=== PATIENT | female | born 1965 | race Caucasian/White ===

== ENCOUNTER → 2017-09-06 | Outpatient (CLI) | payer BC ==
[~2017-09-06] MED LIST: IOHEXOL 240 MG/ML 50ML VIAL. ONE
[2017-09-06] MEDS: IOHEXOL 300 MG/ML 75 ML VIAL. IV ONE (10:28)
[2017-09-06] MEDS: IOHEXOL 300 MG/ML 50 ML VIAL. IV ONE (10:28)
--- NOTE | 2017-09-06 11:13 | RAD ---
CT of the chest, abdomen, and pelvis with contrast 09/06/2017 Indication: Cervical cancer Comparison study: Lumbar spine radiographs January 11, 2016 Technique: Multidetector CT imaging of the chest, abdomen, and pelvis was performed following the administration of intravenous and enteric contrast. PQRS Compliance Statement: One or more of the following individualized dose reduction techniques were utilized for this examination: 1. Automated exposure control 2. Adjustment of the mA and/or kV according to patient size 3. Use of iterative reconstruction technique Chest: Heart size is normal. No pericardial effusion is identified. Coronary artery calcification is noted. No pathologically enlarged mediastinal adenopathy is seen. No pneumothorax, pleural effusion, or focal consolidation is identified. No acute osseous changes are seen involving the bony thorax. Abdomen and pelvis: The liver is unremarkable in appearance. Cholelithiasis noted. Spleen is unremarkable. The adrenal glands are unremarkable. The kidneys are unremarkable. Pancreas is unremarkable. There is no evidence of bowel obstruction. No acute inflammatory changes involving the visualized bowel are identified. There is no pneumoperitoneum. No significant free fluid is seen in the abdomen or pelvis. Patient is status post hysterectomy. The bladder is unremarkable. The no acute osseous changes are identified. Degenerative changes of the lumbar spine are noted. Degenerative changes of the lumbar spine are noted. This includes some height loss at L3, L4, L5 with vacuum disc phenomena. Similar findings are seen T11-T12. Associated vertebral body sclerosis is noted. These findings however are unchanged with respect to comparison radiographs from January 16, 2016. Impression: 1.No evidence of acute or cardiopulmonary or intra-abdominal process. No CT evidence of thoracic or abdominal metastatic disease. 2.Cholelithiasis 3. Coronary artery calcification 4. Significant degenerative changes of the thoracic and lumbar spine
== END | disposition home or self-care (01) ==
LOC: CT 08:57
PROVIDERS: ATTEND Obstetrics & Gynecology Gynecologic Oncology
DX: C53.0 Malignant neoplasm of endocervix (principal); N89.5 Stricture and atresia of vagina; K80.20 Calculus of gallbladder without cholecystitis without obstruction; M47.896 Other spondylosis, lumbar region; I10 Essential (primary) hypertension; Z90.710 Acquired absence of both cervix and uterus
CPT/HCPCS: 71260; 74177; Q9966; Q9967

== ENCOUNTER → 2019-07-18 | Outpatient (CLI) | payer MEDICARE ==
[2019-07-18 10:45] LABS: BASO % 1 % (0-3); EOS # 0.2 x10^3/uL (0.0-0.7); EOS % 6 % (0-3); HEMATOCRIT 34.8 % (36.0-47.0); HEMOGLOBIN 11.1 g/dL (12.0-15.5); LYMPH # 1.2 x10^3/uL (1.0-4.8); LYMPH % 29 % (24-48); MEAN CORPUSCULAR HEMOGLOBIN 28 pg (25-35); MEAN CORPUSCULAR HGB CONC 32 g/dL (31-37); MEAN CORPUSCULAR VOLUME 88 fL (79-100); MONO # 0.2 x10^3/uL (0.0-1.1); MONO % 6 % (0-9); NEUT # 2.4 x10^3uL (1.8-7.7); NEUT % 58 % (31-73); PLATELET COUNT 380 x10^3/uL (140-400); RED BLOOD COUNT 3.94 x10^6/uL (3.50-5.40); WHITE BLOOD COUNT 4.1 x10^3/uL (4.0-11.0)
== END | disposition home or self-care (01) ==
LOC: LAB 09:55
PROVIDERS: ATTEND Nurse Practitioner Family
DX: C53.9 Malignant neoplasm of cervix uteri, unspecified (principal)
CPT/HCPCS: 36415; 85025

== ENCOUNTER → 2019-09-30 | Outpatient (CLI) | payer MEDICARE ==
[~2019-09-30] MED LIST changes: +HEPARIN PF 500 UNIT/5 ML DISP.SYRIN. IVP ONE; -IOHEXOL 240 MG/ML 50ML VIAL. ONE
[2019-09-30 09:48] VITALS: BP 124/88
--- NOTE | 2019-09-30 09:49 | NUR ---
NURSING NOTE OUTPATIENT PT WHEELED TO ROOM 105 FOR OUTPATIENT PORT FLUSH AND LAB DRAW. VITALS OBTAINED. LABS DRAWN. PICC FLUSHED WITH 10 CC NS AND HEP FLUSH LOCK. PT EJ WELL. PT WHEELED OFF UNIT. NO COMPLICATIONS. TINY ZAPIEN.
[2019-09-30 11:09] LABS: ALBUMIN 2.9 g/dL (3.4-5.0); ALBUMIN/GLOBULIN RATIO 0.7 (1.0-1.7); CALCIUM 7.7 mg/dL (8.5-10.1); CREATININE 0.9 mg/dL (0.6-1.0); GFR 65.8; POTASSIUM 4.4 mmol/L (3.5-5.1); TOTAL BILIRUBIN 0.1 mg/dL (0.2-1.0); TOTAL PROTEIN 7.3 g/dL (6.4-8.2)
== END | disposition home or self-care (01) ==
LOC: OPINF 09:12
PROVIDERS: ATTEND Nurse Practitioner Family
DX: C53.9 Malignant neoplasm of cervix uteri, unspecified (principal)
CPT/HCPCS: 36415; 36591; 80053; 96523

== ENCOUNTER → 2019-10-21 | Outpatient (CLI) | payer MEDICARE ==
[2019-10-21 09:23] LABS: BASO # 0.1 x10^3/uL (0.0-0.2); BASO % 1 % (0-3); EOS # 0.2 x10^3/uL (0.0-0.7); EOS % 3 % (0-3); HEMATOCRIT 32.5 % (36.0-47.0); HEMOGLOBIN 10.7 g/dL (12.0-15.5); LYMPH % 17 % (24-48); MEAN CORPUSCULAR HEMOGLOBIN 30 pg (25-35); MEAN CORPUSCULAR HGB CONC 33 g/dL (31-37); MEAN CORPUSCULAR VOLUME 90 fL (79-100); MONO # 0.4 x10^3/uL (0.0-1.1); MONO % 6 % (0-9); NEUT # 4.3 x10^3uL (1.8-7.7); NEUT % 73 % (31-73); PLATELET COUNT 356 x10^3/uL (140-400); RED CELL DISTRIBUTION WIDTH 20.6 % (11.5-14.5); WHITE BLOOD COUNT 5.9 x10^3/uL (4.0-11.0)
[2019-10-21 09:26] VITALS: BP 124/67
--- NOTE | 2019-10-21 09:28 | NUR ---
Port accessed using 20g 1 inch. flushed with 10 cc NS then pulled back and wasted. [place] for labs pulled back from port then flushed with 30 cc NS then heparin flush. Pt tolerated well then deaccessed with ease. Vitals taken and paper work signed. Will fax to appropriate place. PT left via WC with friend driving. Moe FRANKS
[2019-10-21 09:40] LABS: ALBUMIN 2.8 g/dL (3.4-5.0); ALBUMIN/GLOBULIN RATIO 0.6 (1.0-1.7); CALCIUM 7.3 mg/dL (8.5-10.1); CREATININE 0.9 mg/dL (0.6-1.0); GFR 65.5; POTASSIUM 3.8 mmol/L (3.5-5.1); TOTAL BILIRUBIN 0.2 mg/dL (0.2-1.0); TOTAL PROTEIN 7.2 g/dL (6.4-8.2)
[2019-10-21 10:11] LABS: PLT ESTIMATE ADEQUATE (ADEQUATE)
[2019-10-21 10:16] LABS: PAPPENHEIMER BODIES PRESENT
[2019-10-21 10:17] LABS: ANISOCYTOSIS PRESENT
== END | disposition home or self-care (01) ==
LOC: OPINF 09:15
PROVIDERS: ATTEND Nurse Practitioner Family
DX: Z45.2 Encounter for adjustment and management of vascular access device (principal); C53.9 Malignant neoplasm of cervix uteri, unspecified
CPT/HCPCS: 36415; 36591; 80053; 85025; 96523

== ENCOUNTER → 2020-02-04 | Outpatient (CLI) | payer MEDICARE ==
[2020-02-04 09:12] VITALS: BP 139/71
--- NOTE | 2020-02-04 09:14 | NUR ---
Port accessed with ease 20g 1 inch. Great blood return noted. Flushed with 60 CC NS then heparin flush 5cc. PT left via WC via private vehicle. Moe FRANKS
== END | disposition home or self-care (01) ==
LOC: OPINF 08:35
PROVIDERS: ATTEND Family Medicine
DX: Z45.2 Encounter for adjustment and management of vascular access device (principal); I10 Essential (primary) hypertension
CPT/HCPCS: 96523

== ENCOUNTER → 2020-03-10 | Outpatient (CLI) | payer MEDICARE ==
[~2020-03-10] MED LIST changes: +ALTEPLASE 2 MG VIAL INT CAT PRN; -HEPARIN PF 500 UNIT/5 ML DISP.SYRIN. IVP ONE
[2020-03-10 09:17] VITALS: BP 110/73
[2020-03-10] MEDS: HEPARIN PF 500 UNIT/5 ML DISP.SYRIN. IVP ONE (09:29)
== END | disposition home or self-care (01) ==
LOC: OPINF 08:55
PROVIDERS: ATTEND Nurse Practitioner Family
DX: Z45.2 Encounter for adjustment and management of vascular access device (principal); I10 Essential (primary) hypertension
CPT/HCPCS: 96523

== ENCOUNTER → 2020-05-25 | Outpatient (CLI) | payer MEDICARE ==
[2020-04-21 09:16] VITALS: BP 128/78
[2020-05-25 13:13] LABS: BACTERIA,URINE MANY /HPF (0-FEW); BILIRUBIN,URINE NEG (NEG); CLARITY,URINE CLOUDY; COLOR,URINE YELLOW; GLUCOSE,URINE NEG (NEG); NITRITE,URINE POS (NEG); SQUAMOUS EPITHELIAL CELL,UR OCC /LPF; UROBILINOGEN,URINE 0.2 mg/dL (0.2 mg/dL); WBC,URINE >40 /HPF (0-4)
== END ==
LOC: LAB 12:33
PROVIDERS: ATTEND Nurse Practitioner Family
DX: R30.0 Dysuria (principal)
CPT/HCPCS: 81001; 87077; 87086; 87186

== ENCOUNTER → 2020-09-16 | Outpatient (CLI) | payer MEDICARE ==
[~2020-09-16] MED LIST changes: -ALTEPLASE 2 MG VIAL INT CAT PRN; +HEPARIN PF 500 UNIT/5 ML DISP.SYRIN. IVP ONE
[2020-09-16 09:48] VITALS: BP 118/80
--- NOTE | 2020-09-16 09:50 | NUR ---
NURSING NOTE OUTPATIENT PT WHEELED TO ROOM 109 FOR PORT FLUSH AND LAB COLLECTION. VITALS OBTAINED. NO COMPLICATIONS. PT WHEELED OFF UNIT. TINY ZAPIEN.
[2020-09-16 10:03] LABS: BASO # 0.1 x10^3/uL (0.0-0.2); BASO % 1 % (0-3); EOS # 0.4 x10^3/uL (0.0-0.7); EOS % 5 % (0-3); HEMATOCRIT 35.2 % (36.0-47.0); HEMOGLOBIN 11.4 g/dL (12.0-15.5); LYMPH # 1.1 x10^3/uL (1.0-4.8); LYMPH % 16 % (24-48); MEAN CORPUSCULAR HEMOGLOBIN 29 pg (25-35); MEAN CORPUSCULAR HGB CONC 33 g/dL (31-37); MEAN CORPUSCULAR VOLUME 88 fL (79-100); MONO # 0.4 x10^3/uL (0.0-1.1); MONO % 6 % (0-9); NEUT # 4.9 x10^3uL (1.8-7.7); NEUT % 72 % (31-73); PLATELET COUNT 303 x10^3/uL (140-400); RED BLOOD COUNT 4.01 x10^6/uL (3.50-5.40); RED CELL DISTRIBUTION WIDTH 16.7 % (11.5-14.5); WHITE BLOOD COUNT 6.8 x10^3/uL (4.0-11.0)
[2020-09-16 10:24] LABS: ALBUMIN 2.8 g/dL (3.4-5.0); ALBUMIN/GLOBULIN RATIO 0.6 (1.0-1.7); CALCIUM 8.3 mg/dL (8.5-10.1); CREATININE 1.2 mg/dL (0.6-1.0); POTASSIUM 3.9 mmol/L (3.5-5.1); TOTAL BILIRUBIN 0.2 mg/dL (0.2-1.0); TOTAL PROTEIN 7.2 g/dL (6.4-8.2)
[2020-09-17 13:43] LABS: FREE T4 0.96 ng/dL (0.76-1.46); THYROID STIM HORMONE (TSH) 14.872 uIU/mL (0.358-3.740)
== END | disposition home or self-care (01) ==
LOC: OPINF 09:09
PROVIDERS: ATTEND Obstetrics & Gynecology
DX: Z45.2 Encounter for adjustment and management of vascular access device (principal); C53.9 Malignant neoplasm of cervix uteri, unspecified; I10 Essential (primary) hypertension; E78.5 Hyperlipidemia, unspecified; R97.1 Elevated cancer antigen 125 [CA 125]
CPT/HCPCS: 36415; 80053; 84436; 84439; 84443; 85025; 96523

== ENCOUNTER → 2020-11-20 | Outpatient (CLI) | payer MEDICARE ==
[~2020-11-20] MED LIST changes: -HEPARIN PF 500 UNIT/5 ML DISP.SYRIN. IVP ONE; +HEPARIN PF 500 UNIT/5 ML DISP.SYRIN. ONE
[2020-11-20 09:00] VITALS: BP 113/78
[2020-11-20 10:05] LABS: BASO # 0.1 x10^3/uL (0.0-0.2); BASO % 1 % (0-3); EOS # 0.4 x10^3/uL (0.0-0.7); EOS % 4 % (0-3); HEMATOCRIT 32.7 % (36.0-47.0); HEMOGLOBIN 10.4 g/dL (12.0-15.5); LYMPH # 1.2 x10^3/uL (1.0-4.8); LYMPH % 13 % (24-48); MEAN CORPUSCULAR HEMOGLOBIN 26 pg (25-35); MEAN CORPUSCULAR HGB CONC 32 g/dL (31-37); MEAN CORPUSCULAR VOLUME 83 fL (79-100); MONO # 0.5 x10^3/uL (0.0-1.1); MONO % 6 % (0-9); NEUT # 7.1 x10^3uL (1.8-7.7); NEUT % 76 % (31-73); PLATELET COUNT 439 x10^3/uL (140-400); RED BLOOD COUNT 3.95 x10^6/uL (3.50-5.40); RED CELL DISTRIBUTION WIDTH 17.5 % (11.5-14.5); WHITE BLOOD COUNT 9.3 x10^3/uL (4.0-11.0)
[2020-11-20 10:15] LABS: ALBUMIN 2.6 g/dL (3.4-5.0); ALBUMIN/GLOBULIN RATIO 0.5 (1.0-1.7); CALCIUM 7.6 mg/dL (8.5-10.1); CREATININE 1.3 mg/dL (0.6-1.0); GFR 42.7; POTASSIUM 3.6 mmol/L (3.5-5.1); TOTAL BILIRUBIN 0.3 mg/dL (0.2-1.0)
[2020-11-20 18:48] LABS: FREE T4 1.25 ng/dL (0.76-1.46); THYROID STIM HORMONE (TSH) 7.711 uIU/mL (0.358-3.740)
== END ==
LOC: OPINF 08:55
PROVIDERS: ATTEND Nurse Practitioner Family
DX: C53.9 Malignant neoplasm of cervix uteri, unspecified (principal); I10 Essential (primary) hypertension; E78.5 Hyperlipidemia, unspecified; E78.2 Mixed hyperlipidemia
CPT/HCPCS: 36415; 36591; 80053; 84439; 84443; 85025; 96523

== ENCOUNTER → 2020-12-11 | Outpatient (CLI) | payer MEDICARE ==
[~2020-12-11] MED LIST changes: +HEPARIN PF 500 UNIT/5 ML DISP.SYRIN. IVP ONE
[2020-12-11 10:09] VITALS: BP 105/57
--- NOTE | 2020-12-11 10:10 | NUR ---
NURSING NOTE PT WHEELED TO ROOM 131 FOR OUTPT PORT ACCESS AND LAB COLLECTION. VITALS OBTAINED. PORT ACCESSED WITH 20G 1 IN GARZA NEEDLE. FLUSHED WITH 20CC NS. LABS COLLECTED. HEP LOCK ADMINISTERED. GARZA NEEDLE REMOVED. PT TOLERATED WELL. PT WHEELED OFF UNIT. TINY ZAPIEN.
[2020-12-11 10:24] LABS: BASO # 0.1 x10^3/uL (0.0-0.2); BASO % 1 % (0-3); EOS # 0.3 x10^3/uL (0.0-0.7); EOS % 3 % (0-3); HEMATOCRIT 28.5 % (36.0-47.0); LYMPH # 1.2 x10^3/uL (1.0-4.8); LYMPH % 12 % (24-48); MEAN CORPUSCULAR HEMOGLOBIN 26 pg (25-35); MEAN CORPUSCULAR HGB CONC 32 g/dL (31-37); MEAN CORPUSCULAR VOLUME 82 fL (79-100); MONO # 0.6 x10^3/uL (0.0-1.1); MONO % 5 % (0-9); NEUT # 8.3 x10^3uL (1.8-7.7); NEUT % 79 % (31-73); PLATELET COUNT 506 x10^3/uL (140-400); RED BLOOD COUNT 3.49 x10^6/uL (3.50-5.40); RED CELL DISTRIBUTION WIDTH 17.9 % (11.5-14.5); WHITE BLOOD COUNT 10.5 x10^3/uL (4.0-11.0)
[2020-12-11 10:34] LABS: ALBUMIN 2.2 g/dL (3.4-5.0); ALBUMIN/GLOBULIN RATIO 0.4 (1.0-1.7); CALCIUM 7.6 mg/dL (8.5-10.1); CREATININE 1.3 mg/dL (0.6-1.0); GFR 42.7; POTASSIUM 3.5 mmol/L (3.5-5.1); TOTAL BILIRUBIN 0.3 mg/dL (0.2-1.0); TOTAL PROTEIN 7.9 g/dL (6.4-8.2)
[2020-12-11 13:53] LABS: FREE T4 1.39 ng/dL (0.76-1.46); THYROID STIM HORMONE (TSH) 7.69 uIU/mL (0.358-3.740)
== END | disposition home or self-care (01) ==
LOC: OPINF 09:21
PROVIDERS: ATTEND Nurse Practitioner Family
DX: Z45.2 Encounter for adjustment and management of vascular access device (principal); C53.0 Malignant neoplasm of endocervix; I10 Essential (primary) hypertension; E78.2 Mixed hyperlipidemia; G62.9 Polyneuropathy, unspecified
CPT/HCPCS: 36415; 80053; 84436; 84439; 84443; 85025; 86304; 96523

== ENCOUNTER → 2021-01-01 | Outpatient (CLI) | payer MEDICARE ==
[2021-01-01 09:38] VITALS: BP 129/76
--- NOTE | 2021-01-01 09:40 | NUR ---
pt presents for lab draw, labs drawn through port per protocol. pt tolerated well.
[2021-01-01 11:06] LABS: BASO # 0.1 x10^3/uL (0.0-0.2); BASO % 1 % (0-3); EOS # 0.4 x10^3/uL (0.0-0.7); EOS % 3 % (0-3); HEMATOCRIT 33.7 % (36.0-47.0); HEMOGLOBIN 10.3 g/dL (12.0-15.5); LYMPH % 18 % (24-48); MEAN CORPUSCULAR HEMOGLOBIN 25 pg (25-35); MEAN CORPUSCULAR HGB CONC 31 g/dL (31-37); MEAN CORPUSCULAR VOLUME 83 fL (79-100); MONO # 0.7 x10^3/uL (0.0-1.1); MONO % 6 % (0-9); NEUT # 8.1 x10^3uL (1.8-7.7); NEUT % 72 % (31-73); PLATELET COUNT 518 x10^3/uL (140-400); RED BLOOD COUNT 4.08 x10^6/uL (3.50-5.40); RED CELL DISTRIBUTION WIDTH 19.9 % (11.5-14.5); WHITE BLOOD COUNT 11.3 x10^3/uL (4.0-11.0)
[2021-01-01 11:14] LABS: ALBUMIN 2.7 g/dL (3.4-5.0); ALBUMIN/GLOBULIN RATIO 0.5 (1.0-1.7); CALCIUM 7.9 mg/dL (8.5-10.1); CREATININE 1.3 mg/dL (0.6-1.0); GFR 42.7; POTASSIUM 3.5 mmol/L (3.5-5.1); TOTAL BILIRUBIN 0.2 mg/dL (0.2-1.0); TOTAL PROTEIN 7.9 g/dL (6.4-8.2)
== END | disposition home or self-care (01) ==
LOC: OPINF 08:46
PROVIDERS: ATTEND Nurse Practitioner Family
DX: C53.0 Malignant neoplasm of endocervix (principal); I10 Essential (primary) hypertension; E78.2 Mixed hyperlipidemia; G62.9 Polyneuropathy, unspecified
CPT/HCPCS: 36415; 80053; 84439; 84443; 85025

== ENCOUNTER → 2021-02-15 | Outpatient (CLI) | payer MEDICARE ==
[2021-02-15 10:00] VITALS: BP 92/49
[2021-02-15 13:03] LABS: BASO # 0.1 x10^3/uL (0.0-0.2); BASO % 1 % (0-3); EOS # 0.2 x10^3/uL (0.0-0.7); EOS % 2 % (0-3); HEMATOCRIT 30.9 % (36.0-47.0); HEMOGLOBIN 9.6 g/dL (12.0-15.5); LYMPH # 1.3 x10^3/uL (1.0-4.8); LYMPH % 13 % (24-48); MEAN CORPUSCULAR HEMOGLOBIN 26 pg (25-35); MEAN CORPUSCULAR HGB CONC 31 g/dL (31-37); MEAN CORPUSCULAR VOLUME 82 fL (79-100); MONO # 0.6 x10^3/uL (0.0-1.1); MONO % 6 % (0-9); NEUT # 8.4 x10^3uL (1.8-7.7); NEUT % 78 % (31-73); PLATELET COUNT 457 x10^3/uL (140-400); RED BLOOD COUNT 3.78 x10^6/uL (3.50-5.40); RED CELL DISTRIBUTION WIDTH 19.5 % (11.5-14.5); WHITE BLOOD COUNT 10.7 x10^3/uL (4.0-11.0)
[2021-02-15 13:11] LABS: ALBUMIN 2.4 g/dL (3.4-5.0); ALBUMIN/GLOBULIN RATIO 0.5 (1.0-1.7); CALCIUM 7.5 mg/dL (8.5-10.1); CREATININE 1.2 mg/dL (0.6-1.0); GFR 46.8; POTASSIUM 3.4 mmol/L (3.5-5.1); TOTAL BILIRUBIN 0.2 mg/dL (0.2-1.0); TOTAL PROTEIN 7.6 g/dL (6.4-8.2)
--- NOTE | 2021-02-15 13:54 | NUR ---
pt here for port flush, port accessed per protocol. port flushed with 20ml NS good blood return noted. blood drawn per order for labs. port flushed with 20ml NS and packed with heparin.
== END | disposition home or self-care (01) ==
LOC: OPINF 09:16
PROVIDERS: ATTEND Family Medicine
DX: Z45.2 Encounter for adjustment and management of vascular access device (principal); C53.0 Malignant neoplasm of endocervix; I10 Essential (primary) hypertension; E78.2 Mixed hyperlipidemia; G62.9 Polyneuropathy, unspecified
CPT/HCPCS: 36415; 36591; 80053; 85025; 86304

== ENCOUNTER → 2021-03-08 | Outpatient (CLI) | payer MEDICARE ==
[2021-03-08 10:30] VITALS: BP 121/57
[2021-03-08 11:09] LABS: BASO % 0 % (0-3); EOS # 0.1 x10^3/uL (0.0-0.7); EOS % 2 % (0-3); HEMOGLOBIN 9.5 g/dL (12.0-15.5); LYMPH % 16 % (24-48); MEAN CORPUSCULAR HEMOGLOBIN 27 pg (25-35); MEAN CORPUSCULAR HGB CONC 32 g/dL (31-37); MEAN CORPUSCULAR VOLUME 84 fL (79-100); MONO # 0.6 x10^3/uL (0.0-1.1); MONO % 9 % (0-9); NEUT # 4.4 x10^3uL (1.8-7.7); NEUT % 72 % (31-73); PLATELET COUNT 263 x10^3/uL (140-400); RED BLOOD COUNT 3.57 x10^6/uL (3.50-5.40); RED CELL DISTRIBUTION WIDTH 21.1 % (11.5-14.5); WHITE BLOOD COUNT 6.1 x10^3/uL (4.0-11.0)
[2021-03-08 11:13] LABS: CALCIUM 6.7 mg/dL (8.5-10.1); CREATININE 1.2 mg/dL (0.6-1.0); GFR 46.8; POTASSIUM 3.4 mmol/L (3.5-5.1)
[2021-03-08 11:19] LABS: ALBUMIN 2.7 g/dL (3.4-5.0); ALBUMIN/GLOBULIN RATIO 0.6 (1.0-1.7); TOTAL BILIRUBIN 0.2 mg/dL (0.2-1.0); TOTAL PROTEIN 7.5 g/dL (6.4-8.2)
[2021-03-08 11:35] LABS: ANISOCYTOSIS MOD; PLT ESTIMATE ADEQUATE (ADEQUATE)
--- NOTE | 2021-03-08 17:57 | NUR ---
Pt here for port flush, port accessed per protocol. port flushed with 20ml NS but could not get any blood return therefore lab had to draw blood per order. Port was packed with heparin. Patient left the unit via wheelchair accompanied by SAMPLE EXAMINER.
== END ==
LOC: OPINF 09:26
PROVIDERS: ATTEND Nurse Practitioner Family
DX: C53.9 Malignant neoplasm of cervix uteri, unspecified (principal); I10 Essential (primary) hypertension; E78.2 Mixed hyperlipidemia; G62.9 Polyneuropathy, unspecified
CPT/HCPCS: 36415; 36591; 80053; 85025

== ENCOUNTER 2021-09-21 12:05 | Emergency (ER) | payer MEDICARE ==
[~2021-09-21] VITALS: Ht 177.8 cm; Wt 164.0 kg
[2021-09-21 12:11] VITALS: BP 141/49
--- NOTE | 2021-09-21 12:43 | PHYS DOC ---
Past History Past Surgical History: Cancer Surgery, Colectomy, Other Additional Past Surgical Histo: Thyroidectomy Alcohol Use: None General Adult EDM: Chief Complaint: BACK PAIN OR INJURY HPI: HPI: Patient is a 55-year-old female coming in via EMS for right lower back pain. Patient says the pain has been going on for about a week. Took her home pain medications without improvement. Patient denies any injuries or falls. Patient has a history of chronic low back pain and used to get injections. Patient is currently getting treatment for metastatic cervical cancer with chemotherapy. Had a PET scan done 2 weeks ago that showed no metastasis to bone Review of Systems: Review of Systems: All other systems within normal limits except for as noted in the HPI Current Medications: Current Meds: Current Medications Medications (Trade) Dose Ordered Sig/Kiki Start Time Stop Time Status Last Admin Dose Admin Hydromorphone HCl (Dilaudid) 1 mg 1X ONCE 09/21/21 12:45 09/21/21 12:46 Ketorolac Tromethamine (Toradol 15mg Vial) 15 mg 1X ONCE 09/21/21 12:45 09/21/21 12:46 Orphenadrine Citrate (Norflex) 60 mg 1X ONCE 09/21/21 12:45 09/21/21 12:46 Allergies: Allergies: Allergies Coded Allergies Type Severity Reaction Last Updated Verified Penicillins Allergy Intermediate Unknown 04/05/21 Yes Sulfa (Sulfonamide Antibiotics) Allergy Intermediate Unknown 04/05/21 Yes Physical Exam: PE: Constitutional: Well developed, well nourished, no acute distress, non-toxic appearance. [] HENT: Normocephalic, atraumatic, bilateral external ears normal, nose normal. [] Eyes: PERRLA, conjunctiva normal, no discharge. [] Neck: No rigidity, supple, no stridor. [] Cardiovascular: Regular rate and rhythm, brisk cap refill [] Lungs & Thorax: Non labored symmetric respirations, no tachypnea or respiratory distress [] Abdomen: Soft, nondistended. Skin: Warm, dry, no erythema, no rash. [] Back: Unremarkable no step-off or deformity, right lower back pain Extremities: No deformities, range of motion grossly intact, no lower extremity edema [] Neurologic: Alert and oriented X 3, no focal deficits noted. [] Psychologic: Affect normal, judgement normal, mood normal. [] Current Patient Data: Vital Signs: Vital Signs Date Time Temp Pulse Resp B/P (MAP) Pulse Ox O2 Delivery O2 Flow Rate FiO2 09/21/21 12:11 97.9 81 16 141/49 (79) 100 Room Air EKG: EKG: [] Radiology/Procedures: Radiology/Procedures: [address] [id number] IMAGING REPORT Signed PATIENT: RASHAWN LO ACCOUNT: [id number] : 1965 LOCATION: ER AGE: 55 SEX: F EXAM STATUS: REG ER ORD. PHYSICIAN: FRANCOIS BANEGAS MD REASON: pain, right PROCEDURE: CT LUMBAR SPINE WO CONTRAST CT LUMBAR SPINE WO History:Reason: pain, right / Spl. Instructions: / History: Technique: Noncontrast CT was performed of the lumbar spine. Multiplanar recon structions were performed. Exposure: One or more of the following individualized dose reduction techniques were utilized for this examination: 1. Automated exposure control 2. Adjustment of the mA and/or kV according to patient size 3. Use of iterative reconstruction technique. Comparison: None Findings: Moderate to severe left hydronephrosis. Left renal atrophy. Moderate to severe right hydronephrosis. Bilateral nephroureteral stents partially imaged. Partial lumbarization of S1. No acute fracture. Advanced degenerative changes most prominent L4-5 and L5-S1. T12-L1: Small disc bulge. No canal or neuroforaminal narrowing. L1-L2: Small disc bulge. No canal or neuroforaminal narrowing. L2-L3: Small broad-based disc bulge. Mild subarticular recess narrowing. No canal narrowing. Mild left neuroforaminal narrowing. Mild facet arthropathy. L3-L4: Posterior disc osteophyte complex. Mild to moderate canal narrowing. Mild bilateral neuroforaminal narrowing. Mild facet arthropathy. L4-L5: Posterior disc osteophyte complex. Degraded evaluation of the central canal. Mild to moderate canal narrowing. Moderate facet arthropathy. Severe right and moderate left neuroforaminal narrowing. L5-S1: Posterior disc osteophyte complex. Degraded evaluation of the central canal. Mild canal narrowing. Subarticular recess narrowing. Moderate facet arthropathy. Severe bilateral neuroforaminal narrowing. Impression: 1. Advanced lumbar spondylosis most prominent L4-5 and L5-S1. 2. Severe neuroforaminal narrowing right L4-L5 and bilateral L5-S1. 3. Moderate to severe bilateral hydronephrosis with bilateral ureteral stents. Electronically signed by: Ezra Martell DO (09/21/2021 1:42 PM) [id number] DICTATED AND SIGNED BY: EZRA MARTELL DO DATE: 09/21/21 [id number] CC: FRANCOIS BANEGAS MD; RAMONITA STINSON ~ [] Heart Score: C/O Chest Pain: No Risk Factors: Risk Factors: DM, Current or recent (<one month) smoker, HTN, HLP, family history of CAD, obesity. Risk Scores: Score 0 - 3: 2.5% MACE over next 6 weeks - Discharge Home Score 4 - 6: 20.3% MACE over next 6 weeks - Admit for Clinical Observation Score 7 - 10: 72.7% MACE over next 6 weeks - Early Invasive Strategies Course & Med Decision Making: Course & Med Decision Making Patient has large right-sided hernia on CT scan. Patient states that this is a known hernia and not complaining of pain in her stomach or distention. Patient's pain controlled and requesting discharge. Dragon Disclaimer: Roberto Disclaimer: This electronic medical record was generated, in whole or in part, using a voice recognition dictation system. Departure Departure: Impression: Primary Impression: Acute exacerbation of chronic low back pain Disposition: HOME / SELF CARE / HOMELESS Condition: STABLE Referrals: RAMONITA STINSON (PCP) Patient Instructions: Back Pain, Adult FRANCOIS BANEGAS MD Sep 21, 2021 12:43
[2021-09-21] MEDS: HYDROmorphone PF 1 MG/ML DISP.SYRIN IVP ONE ×3 (13:08→15:45)
[2021-09-21] MEDS: KETOROLAC 15 MG/ML VIAL. IVP ONE ×2 (13:08→14:17)
[2021-09-21] MEDS: ORPHENADRINE CITRATE 60 MG/2 ML VIAL. IM ONE (13:08)
--- NOTE | 2021-09-21 13:44 | RAD ---
CT LUMBAR SPINE WO History:Reason: pain, right / Spl. Instructions: / History: Technique: Noncontrast CT was performed of the lumbar spine. Multiplanar reconstructions were perform ed. Exposure: One or more of the following individualized dose reduction techniques were utilized for thi s examination: 1. Automated exposure control 2. Adjustment of the mA and/or kV according to patient size 3. Use of iterative reconstruction technique. Comparison: None Findings: Moderate to severe left hydronephrosis. Left renal atrophy. Moderate to severe right hydronephrosis. Bilateral nephroureteral stents partially imaged. Partial lumbarization of S1. No acute fracture. Advanced degenerative changes most prominent L4-5 and L5-S1. T12-L1: Small disc bulge. No canal or neuroforaminal narrowing. L1-L2: Small disc bulge. No canal or neuroforaminal narrowing. L2-L3: Small broad-based disc bulge. Mild subarticular recess narrowing. No canal narrowing. Mild le ft neuroforaminal narrowing. Mild facet arthropathy. L3-L4: Posterior disc osteophyte complex. Mild to moderate canal narrowing. Mild bilateral neurofora livia narrowing. Mild facet arthropathy. L4-L5: Posterior disc osteophyte complex. Degraded evaluation of the central canal. Mild to moderate canal narrowing. Moderate facet arthropathy. Severe right and moderate left neuroforaminal narrowing . L5-S1: Posterior disc osteophyte complex. Degraded evaluation of the central canal. Mild canal narro wing. Subarticular recess narrowing. Moderate facet arthropathy. Severe bilateral neuroforaminal narr owing. Impression: 1. Advanced lumbar spondylosis most prominent L4-5 and L5-S1. 2. Severe neuroforaminal narrowing right L4-L5 and bilateral L5-S1. 3. Moderate to severe bilateral hydronephrosis with bilateral ureteral stents. Electronically signed by: Ezra Martell DO (09/21/2021 1:42 PM) [id number]
== END 2021-09-21 16:12 | disposition home or self-care (01) ==
LOC: ER 12:05
DX: G89.29 Other chronic pain (principal); M54.59 Other low back pain; Z88.0 Allergy status to penicillin; Z88.2 Allergy status to sulfonamides
CPT/HCPCS: 72131; 96372; 96374; 96375; 96376; 99284; J1170; J1885; J2360

== ENCOUNTER → 2021-09-27 | Outpatient (CLI) | payer MEDICARE ==
[~2021-09-27] MED LIST changes: -HEPARIN PF 500 UNIT/5 ML DISP.SYRIN. ONE
--- NOTE | 2021-09-27 09:45 | NUR ---
Patient arrived to the unit unaccompanied via wheelchair to room 103. Patient had orders for labs. Port was not accessed today due to the port being difficult to access for labs more often than not and that the port would be accessed Monday for chemotherapy. Once chemical laboratory technician obtained the labs the patient left the unit via wheelchair escorted by this RN.
[2021-09-27 10:40] VITALS: BP 101/62
[2021-09-27 11:02] LABS: BASO % 1 % (0-3); EOS # 0.1 x10^3/uL (0.0-0.7); EOS % 1 % (0-3); HEMATOCRIT 25.6 % (36.0-47.0); HEMOGLOBIN 8.3 g/dL (12.0-15.5); LYMPH # 0.8 x10^3/uL (1.0-4.8); LYMPH % 14 % (24-48); MEAN CORPUSCULAR HEMOGLOBIN 33 pg (25-35); MEAN CORPUSCULAR HGB CONC 32 g/dL (31-37); MEAN CORPUSCULAR VOLUME 100 fL (79-100); MONO # 0.4 x10^3/uL (0.0-1.1); MONO % 7 % (0-9); NEUT # 4.2 x10^3uL (1.8-7.7); NEUT % 77 % (31-73); PLATELET COUNT 123 x10^3/uL (140-400); RED BLOOD COUNT 2.56 x10^6/uL (3.50-5.40); RED CELL DISTRIBUTION WIDTH 18.5 % (11.5-14.5); WHITE BLOOD COUNT 5.5 x10^3/uL (4.0-11.0)
[2021-09-27 11:07] LABS: CALCIUM 6.2 mg/dL (8.5-10.1); CREATININE 1.5 mg/dL (0.6-1.0); GFR 36.2; POTASSIUM 3.7 mmol/L (3.5-5.1)
[2021-09-27 11:13] LABS: ALBUMIN 2.4 g/dL (3.4-5.0); ALBUMIN/GLOBULIN RATIO 0.5 (1.0-1.7); TOTAL BILIRUBIN 0.2 mg/dL (0.2-1.0)
[2021-09-27 14:04] LABS: CHOLESTEROL/HDL RATIO 4.4
[2021-09-27 14:05] LABS: CREATININE,RANDOM URINE 31.9 mg/dL (Not Establ.)
[2021-09-28 01:25] LABS: HEMOGLOBIN A1C 5.9 % (4.8-5.6)
== END | disposition home or self-care (01) ==
LOC: LAB 10:18
PROVIDERS: ATTEND Clinical Nurse Specialist Oncology
DX: C53.9 Malignant neoplasm of cervix uteri, unspecified (principal); E78.2 Mixed hyperlipidemia; G89.29 Other chronic pain; M54.59 Other low back pain; I10 Essential (primary) hypertension; R73.01 Impaired fasting glucose; C53.0 Malignant neoplasm of endocervix; Z90.710 Acquired absence of both cervix and uterus
CPT/HCPCS: 36415; 80053; 80061; 82570; 83036; 84156; 85025; 86304

== ENCOUNTER → 2021-10-18 | Outpatient (CLI) | payer MEDICARE ==
[2021-10-18 10:30] VITALS: BP 112/68
--- NOTE | 2021-10-18 11:25 | NUR ---
Patient arrived to the unit via wheelchair to room 103. VS WNL. Port accessed, port flushed with 20ml of NS, good blood return noted, labs drawn, port flushed with 20ml NS, port de-accessed. Patient left the unit via wheelchair escorted by this RN. Patient transported home in private vehicle.
[2021-10-18 11:58] LABS: ALBUMIN 2.3 g/dL (3.4-5.0); ALBUMIN/GLOBULIN RATIO 0.5 (1.0-1.7); CALCIUM 6.2 mg/dL (8.5-10.1); CREATININE 1.4 mg/dL (0.6-1.0); POTASSIUM 3.9 mmol/L (3.5-5.1); TOTAL BILIRUBIN 0.2 mg/dL (0.2-1.0); TOTAL PROTEIN 7.1 g/dL (6.4-8.2)
[2021-10-18 11:59] LABS: BASO % 0 % (0-3); EOS % 1 % (0-3); HEMATOCRIT 22.6 % (36.0-47.0); HEMOGLOBIN 7.5 g/dL (12.0-15.5); LYMPH # 0.9 x10^3/uL (1.0-4.8); LYMPH % 13 % (24-48); MEAN CORPUSCULAR HEMOGLOBIN 33 pg (25-35); MEAN CORPUSCULAR HGB CONC 33 g/dL (31-37); MEAN CORPUSCULAR VOLUME 100 fL (79-100); MONO # 0.4 x10^3/uL (0.0-1.1); MONO % 7 % (0-9); NEUT % 79 % (31-73); PLATELET COUNT 164 x10^3/uL (140-400); RED BLOOD COUNT 2.26 x10^6/uL (3.50-5.40); RED CELL DISTRIBUTION WIDTH 19.4 % (11.5-14.5); WHITE BLOOD COUNT 6.3 x10^3/uL (4.0-11.0)
== END | disposition home or self-care (01) ==
LOC: OPINF 09:40
PROVIDERS: ATTEND Family Medicine
DX: E89.0 Postprocedural hypothyroidism (principal); I10 Essential (primary) hypertension; G89.29 Other chronic pain; M54.59 Other low back pain; Z90.710 Acquired absence of both cervix and uterus; Z85.42 Personal history of malignant neoplasm of other parts of uterus
CPT/HCPCS: 36415; 80053; 84443; 85025